=== PATIENT | female | born 1990 | race Caucasian/White ===

== ENCOUNTER 2016-05-30 05:31 | Inpatient (IN) | payer MEDICAID ==
[2016-05-30] MEDS ORDERED: LR 1,000 ML IV PRN (05:57)
[2016-05-30] MEDS ORDERED: OXYTOCIN/RINGERS LACTATE 1,000 ML IV PRN (05:57)
[2016-05-30] MEDS ORDERED: TERBUTALINE SULFATE 1 MG/ML VIAL IV PRN (05:57)
[2016-05-30] MEDS ORDERED: AMPICILLIN SODIUM 2 GM in NS 100 ML IV ONE (05:57)
[2016-05-30] MEDS ORDERED: AMPICILLIN SODIUM 2 GM/10 ML VIAL ONE (06:02)
[2016-05-30] MEDS ORDERED: NS 100 ML BAG (MINI-BAG) IV ONE (06:03)
[2016-05-30 06:10] LABS: % IMMATURE GRANULYOCYTES 1.5 % (0.0-1.1); ADD DIFF? NO; ADD MORPH? NO; ADD SCAN? NO; ATYPICAL LYMPHOCYTE FLAG 0 (0-99); FRAGMENT RBC FLAG 0 (0-99); HEMATOCRIT 42.3 % (38.0-47.0); HEMOGLOBIN 14.6 g/dL (12.6-16.3); LEFT SHIFT FLG 0 (0-99); LIPEMIA HEMOLYSIS FLAG 90 (0-99); MEAN CELL HEMOGLOBIN 31.3 pg (27.9-34.1); MEAN CELL HEMOGLOBIN CONCENTR. 34.5 g/dL (32.4-36.7); MEAN CELL VOLUME 90.6 fL (81.5-99.8); MEAN PLATELET VOLUME 10.5 fL (8.7-11.7); PLATELET CLUMPS FLAG 10 (0-99); PLATELET COUNT 274 10^3/uL (150-400); RED BLOOD CELL COUNT 4.67 10^6/uL (4.18-5.33); RED CELL DISTRIBUTION WIDTH 12.7 % (11.5-15.2)
[2016-05-30] MEDS ORDERED: LIDOCAINE 1% 30 ML SDV ONE ×2 (07:08→07:10)
[2016-05-30] MEDS ORDERED: OXYTOCIN 10 UNIT/ML VIAL ONE (07:09)
[2016-05-30] MEDS ORDERED: TERBUTALINE SULFATE 1 MG/ML VIAL ONE (07:09)
[2016-05-30] MEDS ORDERED: AMMONIA AROMATIC 1 EACH AMP IH ONE (07:09)
[2016-05-30] MEDS ORDERED: MISOPROSTOL 200 MCG TAB ONE (07:10)
--- NOTE | 2016-05-30 07:26 | GHP ---
DATE OF ADMISSION: 05/30/2016 ADMITTING DIAGNOSIS: Intrauterine at 40 and 3/7th weeks gestation in active labor with light meconium. Transfer from home body mechanic apprentice. HISTORY OF PRESENT ILLNESS: The patient is a 26-year-old, 1, with an unsure last menstrual period but an EDC set by a 1st trimester ultrasound of . She has been having dual care with [facility] as well as a home body mechanic apprentice, and she had registration at [facility] at 9 weeks ' gestation. 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 Father of the baby is negative. She had a placenta previa but it was resolved, and she has light meconium today. HISTORY OF LABOR COURSE: The patient began labor on the , had spontaneous rupture of the membranes for light meconium, was laboring at home with home body mechanic apprentice. During the course of the labor, she progressed, and they were monitoring the baby and concerned about a low baseline and decreased variability and no accelerations. Therefore, they presented to the hospital for monitoring and further care. Upon presentation to the hospital, the heart tones were in the 110s to 120s with moderate variability, episodes of accelerations and episodes of some variable decelerations. She is willie every 2 minutes. Cervical exam was 8-9, 90, 0 station with light meconium noted. The patient is GBS positive. She has not been treated with any antibiotics at home. We will start her on her ampicillin now. Patient also is expressing she may need some pain medication, and all her options were discussed with her. PAST OBSTETRICAL HISTORY: The patient has no past obstetrical history. This is her first . PAST GYNECOLOGICAL HISTORY: She had a history of an abnormal Pap a couple, 4 years ago. No treatment was done. She had a positive history of gonorrhea 3-4 years ago, and she has received treatment; negative test this . She has been on oral contraceptive pills for control. PAST MEDICAL HISTORY: Significant for anxiety disorder. She has been treated with Celexa in the past, none currently. PAST SURGICAL HISTORY: Tonsils and adenoids as a child. ALLERGIES: She has no known drug allergies. MEDICATIONS: Include vitamins, DHA, and Celexa 10 mg. LABS: She is O positive, antibody negative, RPR nonreactive, rubella immune, hepatitis negative, HIV negative. 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 Pap normal. Gonorrhea and chlamydia normal. Verifi negative. 1 hour GTT 73. GBS is positive. SOCIAL HISTORY: She works as a nanny. She is engaged to [employer]. She denies tobacco, alcohol, and drug use in . FAMILY HISTORY: Paternal grandfather and maternal grandfather both of myocardial infarctions. Mother has asthma. Father has migraines. OBJECTIVE: Today, she is afebrile. Vital signs are stable. heart tones are 110s to 120s, moderate variability, category 1-2, contractions every 1-2 minutes. Cervical exam on admission is stage 8-9, 90%, 0 station with light meconium. ASSESSMENT/PLAN: A 26-year-old, 1, para 0, at 40 and 3/7th weeks' gestation in active labor. Presented to the hospital for monitoring. The status is overall reassuring. We will keep a close eye with continuous monitoring. The patient may desire pain control. Her options of an epidural versus nitric oxide were discussed with her. She is considering. The patient will receive ampicillin for GBS prophylaxis. /[id number]/MODL MTDD
[2016-05-30] MEDS ORDERED: fentaNYL 2MCG/ML/BUP 0.1% RTU 100 ML BAG EP ONE (07:27)
[2016-05-30] MEDS ORDERED: BUPIVACAINE 0.25% 30 ML SDV ONE (07:28)
[2016-05-30] MEDS ORDERED: PHENYLEPHRINE HCL 100 MCG/ML SYR ONE (07:29)
[2016-05-30] MEDS ORDERED: fentaNYL 100 MCG/2 ML INJ ONE (07:40)
--- NOTE | 2016-05-30 09:08 | OBPROG ---
OBG Progress Note Assessment/Plan: Assessment: IUP @40w3d Failed home delivery, in active labor SROM @0130, mec Recent RIP GBS+, rec'd first dose ABX @0615 Plan: Recheck, pit if needed 05/30/16 09:02 Subjective: Called in for FHR decels @0810 bradycardia s/p RIP, resolving after dose of ephedrine. Resuming low baseline of 100-110s but reactive pattern. Objective: 05/30/16 06:00 Patient ABO/Rh O POSITIVE 05/30/16 06:00 Current Contraction Pattern: Other (Specify) (CTXs were regular q 2-3 min prior to RIP) FHR (bpm): 110 FHR Pattern Variability: Moderate FHR Category: 2 (Cat 2 d/t bradycardia, low baseline 100-110) Membranes: SROM Amniotic Fluid Color: Meconium Stained-Light ICD10 Worksheet Patient Problems: Problems Problem Status Onset Active labor at term Acute - ICD10 Problem Qualifiers (1) Active labor at term
[2016-05-30] MEDS ORDERED: PHENYLEPHRINE HCL 100 MCG/ML SYR IVP PRN (09:46)
[2016-05-30] MEDS ORDERED: ONDANSETRON 4 MG/2 ML VIAL IVP PRN (09:46)
--- NOTE | 2016-05-30 09:48 | OBPROG ---
OBG Progress Note Assessment/Plan: Assessment: 26y/o IUP @40w3d Failed home SROM @0130, mec GBS+, rec'd first dose ABX @0615 RIP Plan: SVE complete, pt laboring down 05/30/16 09:45 Subjective: Pt comfortable with epidural, denies urge to push Objective: 05/30/16 06:00 Patient ABO/Rh O POSITIVE 05/30/16 06:00 - SVE Dilation (cm): 10 Effacement (%): 100 Station: 0 Current Contraction Pattern: Regular (q 2-5 min, spontaneous) FHR (bpm): 120 FHR Pattern Variability: Moderate FHR Category: 2 (occas early and variable decels) Membranes: SROM Amniotic Fluid Color: Meconium Stained-Light ICD10 Worksheet Patient Problems: Problems Problem Status Onset Active labor at term Acute
--- NOTE | 2016-05-30 09:50 | POSTANESTH ---
Post Anesthetic Evaluation Cardiovascular Status: Normal, Stable Respiratory Status: Normal, Stable, Similar to Pre-op Cond. Level of Consciousness/Mental Status: Can Participate in Eval, Alert and Oriented Pain Control: Adequate, Prn Tx Ordered Nausea/Vomiting Control: Adequate, Prn Tx Ordered Complications Possibly Related to Anesthesia: None Noted (Tolerated CSE well, stable after phenylephrine x 2, comfortable.)
--- NOTE | 2016-05-30 09:53 | PREANESOB ---
Obstetric Pre-Anesthesia Info - General Info Proposed Procedure: Labor and delivery. : 1 Para: 0 WBD: 40 - Info Status: Full Term Monitors: External FHR Baseline (bpm): 100 FHR Pattern: Reassuring - Labor Status Cervical Dilation per last OB SVE: 9 Amniotic Fluid Color: Meconium Stained-Light Indications for Labor Analgesia: Pain Control Labor Epidural: Proposed Anesthesia ROS: Attempted home but came to hospital after presence of meconium. Allergies/Adverse Reactions: Allergy/AdvReac Type Severity Reaction Status Date / Time No Known Allergies Allergy Unverified 07/05/14 20:04 Home Medications: Medication Instructions Recorded Bactrim DS 07/05/14 Ciprofloxacin [Cipro] 500 mg PO BID #5 tab 07/05/14 Visit Medications: Generic Name Dose Route Start Last Admin Trade Name Freq PRN Reason Stop Dose Admin Diphenhydramine HCl 25 - 50 mg 05/30/16 09:46 Benadryl Injection IVP 11/26/16 09:45 Q6HRS PRN Itching Ampicillin Sodium 1 gm/ Sodium 100 mls @ 200 mls/hr 05/30/16 09:57 Chloride IV 06/29/16 09:56 Q4H [facility] Protocol Lactated Ringer's 1,000 mls @ 0 mls/hr 05/30/16 05:57 Lr IV 11/26/16 05:56 PRN PRN SEE PROTOCOL CONDITIONS Protocol Per Protocol Oxytocin/Lactated Ringer's 1,000 mls @ 150 mls/hr 05/30/16 05:57 Pitocin 20 Units/Lr (Premix) IV PRN PRN Post- bleeding Fentanyl/Bupivacaine HCl 100 mls @ 0 mls/hr 05/30/16 10:00 Fentanyl/Bupivacaine/Ns 2 Mcg/Ml 0.1% (Premix EP 06/09/16 09:59 CONT [facility] Protocol As Directed Lactated Ringer's 500 mls @ 0 mls/hr 05/30/16 10:00 Lr IV 11/26/16 09:59 CONT [facility] As Directed Ibuprofen 600 mg 05/30/16 05:57 Motrin PO 11/26/16 05:56 Q6HRS PRN post , inflammation Ondansetron HCl 4 mg 05/30/16 09:46 Zofran IVP 11/26/16 09:45 Q4HRS PRN Nausea/Vomiting, Can't Take PO Phenylephrine HCl 100 mcg 05/30/16 09:46 Wan-Synephrine IVP 11/26/16 09:45 .Q2M PRN Hypotension Terbutaline Sulfate 0.25 mg 05/30/16 05:57 Brethine IV 11/26/16 05:56 ONCE PRN Tachysystole Discontinued Medications Generic Name Dose Route Start Last Admin Trade Name Gustavo PRN Reason Stop Dose Admin Ammonia (Aromatic Spirit) Confirm 05/30/16 07:09 Ammonia Aromatic Administered 05/30/16 07:10 Dose 1 each IH .STK-MED ONE Ampicillin Sodium Confirm 05/30/16 06:02 Ampicillin Administered 05/30/16 06:03 Dose 2 gm .ROUTE .STK-MED ONE Bupivacaine HCl Confirm 05/30/16 07:28 Sensorcaine 0.25% Sdv Administered 05/30/16 07:29 Dose 30 ml .ROUTE .STK-MED ONE Ephedrine Sulfate Confirm 05/30/16 07:09 Ephedrine Sulfate Administered 05/30/16 07:10 Dose 50 mg .ROUTE .STK-MED ONE Fentanyl Confirm 05/30/16 07:40 Sublimaze Administered 05/30/16 07:41 Dose 100 mcg .ROUTE .STK-MED ONE Fentanyl/Bupivacaine HCl Confirm 05/30/16 07:27 Fentanyl/Bupivacaine/Ns 2 Mcg/Ml 0.1% (Premix Administered 05/30/16 07:28 Dose 100 ml EP .STK-MED ONE Ampicillin Sodium 2 gm/ Sodium 110 mls @ 220 mls/hr 05/30/16 05:57 05/30/16 06:20 Chloride IV 05/30/16 06:26 110 mls ONCE ONE Administration Protocol Lidocaine HCl Confirm 05/30/16 07:08 Lidocaine Hcl 1% Administered 05/30/16 07:09 Dose 30 ml .ROUTE .STK-MED ONE Lidocaine HCl Confirm 05/30/16 07:10 Lidocaine Hcl 1% Administered 05/30/16 07:11 Dose 30 ml .ROUTE .STK-MED ONE Misoprostol Confirm 05/30/16 07:10 Cytotec Administered 05/30/16 07:11 Dose 800 mcg .ROUTE .STK-MED ONE Oxytocin Confirm 05/30/16 07:09 Pitocin Administered 05/30/16 07:10 Dose 30 unit .ROUTE .STK-MED ONE Phenylephrine HCl Confirm 05/30/16 07:29 Wan-Synephrine Administered 05/30/16 07:30 Dose 1,000 mcg .ROUTE .STK-MED ONE Sodium Chloride Confirm 05/30/16 06:03 Sodium Cl 0.9% (Mini-Bag) Administered 05/30/16 06:04 Dose 100 ml IV .STK-MED ONE Terbutaline Sulfate Confirm 05/30/16 07:09 Brethine Administered 05/30/16 07:10 Dose 1 mg .ROUTE .STK-MED ONE - Anesthesia History Response to Local Anesthetics: Normal - Social History Substance Use/Abuse: Denies - Focused Exam Blood Pressure: 135/75 Heart Rate: 67 Respiratory Rate: 20 Height/Weight (Nursing): Height 157.48 cm Weight 77.111 kg Physical Exam: Within normal limits. ASA Status: II Labs: 05/30/16 06:00 Patient ABO/Rh O POSITIVE 05/30/16 06:00 - Plan Anesthetic Plan: CSE Consent Signed and on Chart: Yes Patient/Guardian Understands and Agrees to Plan: Yes
[2016-05-30] MEDS ORDERED: fentaNYL 2MCG/ML/BUP 0.1% RTU 100 ML EP SCH (10:00)
[2016-05-30] MEDS ORDERED: LR 500 ML IV SCH (10:00)
[2016-05-30] MEDS: AMPICILLIN SODIUM 1 GM in NS 100 ML IV SCH ×2 (10:03→14:59)
[2016-05-30] MEDS ORDERED: HYDROCODONE/APAP 5/325 TAB PO PRN (13:54)
[2016-05-30] MEDS ORDERED: ACETAMINOPHEN 325 MG TAB PO PRN (13:54)
[2016-05-30] MEDS ORDERED: DOCUSATE SODIUM 100 MG CAP PO PRN (13:54)
--- NOTE | 2016-05-30 14:17 | OBPROC ---
- Labor and Delivery Onset of Contractions Date: 05/29/16 Onset of Contractions Time: 14:00 Onset of Contractions Type: Spontaneous Rupture of Membranes Date: 05/30/16 Rupture of Membranes Time: 01:30 Rupture of Membranes Type: Spontaneous Amniotic Fluid Color: Meconium Stained-Light Dilation Complete Time: 09:15 Delivery Type: Spontaneous Placenta Delivery Date: 05/30/16 Placenta Delivery Time: 12:19 Episiotomy/Laceration: 2nd Degree, Midline, Perineal Repair: 3-0, Vicryl EBL: 1000 Complications: Nuchal Cord (x2 loose and reduced and body/arm cord), Post Hemorrhage (retained placenta past 15 min and cont steady bleeding and manual extraction of placenta performed. placenta with a normal plane but fully attached at the fundus. clots and heavy bleeding with removal - boggy uterine tone - pitocin begun and cytotec 1000mcg given pr. 1 gm Ancef given IVPB. Tone improved with massage and bld slowed. Pt brigida well - BP remained stable throughout. Brigida extraction with RIP) - Medications Labor Augmentation/Induction Meds Used: Other (Specify) (amp x 2 doses for GBS + ) Labor Augmentation/Induction Indication: Other (Specify) (homebirth failure due to suspected decels - baby baseline in 100-110s with reactive pattern. pt arrived 8-9 cm and then requested RIP) Anesthesia: Epidural - [place] Info A Delivery Date: 05/30/16 Delivery Time: 11:58 Sex of Infant: Female (Jessica) Score (1 Min): 7 Score (5 Min): 9 (attempted to get gases due to cont grunting, but unsuccessful sample)
--- NOTE | 2016-05-30 14:58 | OBPROC ---
- Labor and Delivery Onset of Contractions Date: 05/29/16
[2016-05-30] MEDS: IBUPROFEN 600 MG TAB PO PRN ×2 (17:03→23:36)
[2016-05-31] MEDS: IBUPROFEN 600 MG TAB PO PRN ×2 (06:04→12:31)
--- NOTE | 2016-05-31 07:49 | OBPROG ---
OBG Progress Note Assessment/Plan: Assessment: s/p PPD # 1 - pt is stable Plan: Continue routine pp care Plan for d/c home later today if baby is discharged Instructions reviewed with pt Rx given for Motrin Cont PNV Pelvic rest RTC in 4 and 6 weeks for pp visit 05/31/16 07:46 Subjective: Pt seen and examined. Just got back from ambulating the halls. Doing well, no complaints. Minimal cramping, worse when . Moderate lochia. BM x 1. She wants to go home today. Objective: 05/31/16 06:15 Patient ABO/Rh O POSITIVE 05/30/16 06:00 Temp Pulse Resp BP Pulse Ox 36.6 C 74 16 120/76 96 05/30/16 20:00 05/30/16 20:00 05/30/16 20:00 05/30/16 20:00 05/30/16 20:00 Uterine Position/Fundal Height: Umbilicus -2 Uterine Tone: Firm - Physical Exam General Appearance: WD/WN, alert, no apparent distress Respiratory: lungs clear, normal breath sounds Cardiac/Chest: regular rate, rhythm Abdomen: hypoactive bowel sounds, non-tender, soft, flatus (+) Genitourinary: laceration (intact), lochia (moderate) Extremities: non-tender, normal inspection Neuro/Psych: alert, normal mood/affect, oriented x 3 ICD10 Worksheet Patient Problems: Problems Problem Status Onset Retained placenta with hemorrhage, condition Acute (spontaneous vaginal delivery) Acute Active labor at term Acute hemorrhage, delivered Acute
[2016-05-31 10:56] VITALS: PULSE 98; RESP 18; TEMP 98; O2SAT 98
[2016-05-31 12:12] VITALS: BP 132/81
== END 2016-05-31 12:45 | disposition home or self-care (01) | DRG 774 ==
LOC: FLD 05:31 → FOB 17:24
PROVIDERS: ADMIT Obstetrics & Gynecology; ATTEND Obstetrics & Gynecology
DX: O76 Abnormality in fetal heart rate and rhythm complicating labor and delivery (principal); O99.824 Streptococcus B carrier state complicating childbirth; O72.0 Third-stage hemorrhage; Z37.0 Single live birth; Z3A.40 40 weeks gestation of pregnancy; O99.02 Anemia complicating childbirth; O70.1 Second degree perineal laceration during delivery; O69.82X0 Labor and delivery complicated by other cord entanglement, without compression, not applicable or unspecified
CPT/HCPCS: J0290; J0690; J2370; J2590; J3010; J3105